=== PATIENT | male | born 1975 | race Caucasian/White ===

== ENCOUNTER 2024-07-19 08:11 | Day surgery (SDC) | payer OTHER ==
[~2024-07-19] VITALS: Ht 175 cm; Wt 95.3 kg
[2024-07-19] MEDS ORDERED: INSULIN REGULAR, HUMAN 100 UNIT/ML VIAL IVP SCH (09:00)
[2024-07-19] MEDS ORDERED: INSULIN REGULAR, HUMAN 100 UNIT/ML VIAL SUBQ SCH (09:00)
[2024-07-19] MEDS ORDERED: fentaNYL citrate 0.05 MG/ML VIAL ONE (10:10)
[2024-07-19] MEDS: fentaNYL citrate 0.05 MG/ML VIAL IVP ONE (10:24)
[2024-07-19] MEDS: LIDOCAINE 2% 1000 MG/50 ML VIAL INJ ONE (10:34)
[2024-07-19] MEDS ORDERED: ACETAMINOPHEN EXTRA STRENGTH 500 MG TAB ONE (11:35)
[2024-07-19] MEDS ORDERED: ACETAMINOPHEN EXTRA STRENGTH 500 MG TAB PO SCH (11:35)
[2024-07-19] MEDS: ACETAMINOPHEN EXTRA STRENGTH 500 MG TAB PO ONE (11:36)
== END 2024-07-19 12:36 | disposition home or self-care (01) ==
LOC: MDS 08:11 → MMU 08:12 → MDS 12:36
PROVIDERS: ATTEND Internal Medicine Gastroenterology
DX: K75.81 Nonalcoholic steatohepatitis (NASH) (principal); R94.5 Abnormal results of liver function studies; E11.9 Type 2 diabetes mellitus without complications
CPT/HCPCS: 47000; 76942; 82948; J1815; J2003; J3010